=== PATIENT | female | born 1975 | race Caucasian/White ===

== ENCOUNTER 2019-03-18 10:12 | Outpatient (CLI) | payer BC, SELFPAY ==
--- NOTE | 2019-03-18 | XR_ITS ---
WS: [id number] LUMBAR SPINE TECHNIQUE: 5 views of the lumbar spine CLINICAL INFORMATION: CHRONIC BACK PAIN COMPARISON: None. FINDINGS: Moderate lumbar curve convex left. Tiny riblets at T12. 5 nonrib-bearing lumbar type vertebral bodies . Disc space heights and vertebral body heights appear well-preserved. Mild facet arthropathy L4-L5 a nd L5-S1. Pelvic phleboliths. No instability on flexion extension. XR/XR lumbar spine min 4V [id number] IMPRESSION: 1. Moderate lumbar curve convex left. 2. No acute appearing compression fractures. Disc space heights well-preserved . 3. No instability on flexion extension.
--- NOTE | 2019-03-18 | XR_ITS ---
WS: [id number] SACRUM TECHNIQUE: 3 views of the sacrum and coccyx CLINICAL INFORMATION: CHRONIC BACK PAIN COMPARISON: None. FINDINGS: Mild lumbar curve convex left. Pelvic phleboliths. Sacrum is normal in appearance. Pelvic phleboliths . Sacrococcygeal junction appears normal. Visualized coccyx appears normal. XR/XR sacrum coccyx min 2V [id number] IMPRESSION: No visualized sacral or coccyx fractures.
== END 2019-03-18 10:13 | disposition home or self-care (01) ==
LOC: RADOUTREAD 12:45
PROVIDERS: Family Provider Family Medicine; Visit Provider Nurse Practitioner Family
DX: Z76.89 Persons encountering health services in other specified circumstances (principal)

== ENCOUNTER → 2019-08-01 09:20 | Outpatient (BNVA) | payer BC, SELFPAY | PROVIDERS: Family Provider Family Medicine; Visit Provider Obstetrics & Gynecology | DX: N87.0 Mild cervical dysplasia (principal) | CPT/HCPCS: 88175 ==

== ENCOUNTER 2020-01-06 14:45 | Emergency (ER) | payer BC, SELFPAY ==
[2020-01-06 14:58] VITALS: BP 130/92; PULSE 95; RESP 16; TEMP 36.6; O2SAT 95; BMI 34.1
--- NOTE | 2020-01-06 15:00 | ED_ITS ---
HPI - Chest Pain General: Chief Complaint: Chest Pain Stated Complaint: CP Time Seen by Provider: 01/06/20 14:59 History of Present Illness: HPI narrative: 44 yo female complaining of chest pain that started this morning woke up from sleep she has not had this in the past. She is not noticed anything that exacerbates or relieves it. Does not radiate into her neck back or arms she is extremely anxious in the exam room she has had potation's in the past and had seen Dr. Ortiz her primary care doctor she had a Holter monitor and was given Xanax to help. She does admit to drinking quite a bit of coffee and sometimes energy drinks. Her tested positive for Covid today. complaint: chest pain Onset (ago): hour(s) Timing of current episode: episodic Onset: during rest Pain location: substernal Pain radiation: none Severity: moderate Quality: tightness and heaviness Relieving factors: nothing Exacerbating factors: nothing Associated symptoms: Deny abdominal pain, diaphoresis, dyspnea, fever(s), leg edema, nausea, palpitations, sense of impending doom, syncope or vomiting Treatment prior to arrival: none Review of Systems Const: Denies: fever(s) or diaphoresis ENMT: Denies: throat pain, ear or mastoid pain, nasal discharge or nasal congestion Card: Denies: palpitations or syncope Resp: Denies: dyspnea GI: Denies: abdominal pain, nausea or vomiting : Denies: flank pain, difficulty voiding, dysuria, urinary frequency or urinary urgency Skin/Breast: Denies: rash or pruritus PFS ED PFSH: Medical History (Updated 01/06/20 @ 17:59 by Santiago Villareal DO) Anxiety Surgical History (Updated 08/05/19 @ 15:42 by Kenneth Mcmanus MD) History of breast lump/mass excision (04/30/15) Right breast lumpectomy. [facility]. Dr. Fransisco Solorzano. Right breast mass, 1.5 cm. Pathology: Benign fibroadenoma. History of cholecystectomy (~2005) Laparoscopic. [place] [facility] [place] Family History Father Diabetes Brother Diabetes Grandfather Diabetes Maternal Grandmother Cancer Maternal - leukemia Mother Psychiatric illness Depression Social History Smoking and tobacco status: never smoked Alcohol intake: current Alcohol intake frequency: holidays/special occasions only Other details last substance use: Denies drug use Physical Exam Const: COMMON NORMALS: no acute distress GENERAL APPEARANCE: cooperative and comfortable ORIENTATION/CONSCIOUSNESS: Yes awake, Yes oriented to person, Yes oriented to place and Yes oriented to time HENMT: COMMON NORMALS: normocephalic, atraumatic and hearing grossly normal bilaterally HEAD & SCALP: normocephalic and atraumatic Neck/C-Spine: COMMON NORMALS: no JVD Resp: COMMON NORMALS: normal respiratory effort, No retractions, No use of accessory muscles and clear to auscultation bilaterally AUSCULTATION: clear to auscultation bilaterally Cardio: COMMON NORMALS: no JVD, regular rate, regular rhythm and No murmurs present (Cardio) RATE: regular rate RHYTHM: regular rhythm GI: COMMON NORMALS: Soft to palpation and No hepatosplenomegaly present AUSCULTATION: Yes normoactive bowel sounds PALPATION: Yes Soft to palpation, No Tenderness to palpation present (GI), No Guarding due to palpation present (GI) and Yes No hepatosplenomegaly present Extremity: COMMON NORMALS: normal to inspection, capillary refill normal, no clubbing, cyanosis or edema, no calf tenderness and no pedal edema Neuro: SENSORIUM/ORIENTATION: Yes oriented to person, Yes oriented to place and Yes oriented to time Skin: COMMON NORMALS: no rashes or lesions noted GENERAL SKIN EXAM: no rashes or lesions noted Course Vital Signs: Vital signs: Vital Signs Temperature 97.9 F 01/06/20 14:58 Pulse Rate 66 01/06/20 18:25 Respiratory Rate 16 01/06/20 18:25 Blood Pressure 116/67 01/06/20 18:25 Pulse Oximetry 97 01/06/20 18:25 MDM - Chest Pain MDM Narrative: Medical decision making narrative: Her troponins and her PE are negative. She did have close exposure to COVID-19 her recently tested positive. She has a PCR pending. Recommend she maintain quarantine until results are back. Follow-up with Dr. Ortiz if this persists. She has had evaluation for this in the past and according to her she was told is not related to anxiety would recommend that she use some [id number] Pepcid or omeprazole. If persists she can return here or follow-up with Dr. Ortiz. Lab Data: Labs: Lab Results 01/06/20 01/06/20 01/06/20 Range/Units 15:15 15:15 15:15 WBC 3.5 L (4.0-10.0) 10^3/ uL RBC 4.12 (4.1-5.3) 10^6/u L Hgb 12.6 (11.5-15.3) g/dL Hct 38.3 (37.0-47.0) % MCV 93.0 (81-99) fL MCH 30.6 (28.0-34.0) pg MCHC 32.9 (30.0-36.0) g/dL RDW 12.8 (12.1-15.1) % Plt Count 391 (130-400) 10^3/c mm MPV 9.2 (7.4-10.4) fL Neut % (Auto) 52.4 % Lymph % (Auto) 32.2 % Sterling % (Auto) 12.8 % Eos % (Auto) 1.4 % Baso % (Auto) 0.9 % Neut # (Auto) 1.81 (1.8-7.7) 10^3/u L Lymph # (Auto) 1.1 (0.8-4.8) 10^3/u L Sterling # (Auto) 0.4 (0.2-0.9) 10^3/u L Eos # (Auto) 0.1 (0.0-0.8) 10^3/u L Baso # (Auto) 0.0 (0.0-0.1) 10^3/u L Nucleated RBC % (a uto) 0 % Nucleated RBCs # 0.0 /100WBC Sodium 139 (136-145) mmol/L Potassium 4.1 (3.5-5.1) mmol/L Chloride 105 (98-107) mmol/L Carbon Dioxide 22 (22-29) mmol/L Anion Gap 16.1 (5-19) BUN 8 (6-20) mg/dL Creatinine 0.6 (0.5-0.9) mg/dL GFR Calculation 108.1 (90-130) mL/min Glucose 104 (65-115) mg/dL Calculated Osmolal ity 287 (285-295) mOsm/k g Calcium 8.8 (8.5-10.5) mg/dL Total Bilirubin 0.3 (0.15-1.2) mg/dL AST 17 (0-32) U/L ALT 19 (0-33) U/L Alkaline Phosphata se 55 (35-105) IU/L Troponin T Baselin e 6 (0-10) ng/L Troponin T 120 Min melquiades (0-10) ng/L Delta Troponin T (0-10) ABS# Total Protein 7.0 (6.6-8.7) g/dL Albumin 4.4 (3.5-5.2) g/dL Globulin 2.6 (1.3-4.6) g/dL TSH (0.27-4.20) uIU/ mL 01/06/20 01/06/20 Range/Units 15:15 17:05 WBC (4.0-10.0) 10^3/ uL RBC (4.1-5.3) 10^6/u L Hgb (11.5-15.3) g/dL Hct (37.0-47.0) % MCV (81-99) fL MCH (28.0-34.0) pg MCHC (30.0-36.0) g/dL RDW (12.1-15.1) % Plt Count (130-400) 10^3/c mm MPV (7.4-10.4) fL Neut % (Auto) % Lymph % (Auto) % Sterling % (Auto) % Eos % (Auto) % Baso % (Auto) % Neut # (Auto) (1.8-7.7) 10^3/u L Lymph # (Auto) (0.8-4.8) 10^3/u L Sterling # (Auto) (0.2-0.9) 10^3/u L Eos # (Auto) (0.0-0.8) 10^3/u L Baso # (Auto) (0.0-0.1) 10^3/u L Nucleated RBC % (a uto) % Nucleated RBCs # /100WBC Sodium (136-145) mmol/L Potassium (3.5-5.1) mmol/L Chloride (98-107) mmol/L Carbon Dioxide (22-29) mmol/L Anion Gap (5-19) BUN (6-20) mg/dL Creatinine (0.5-0.9) mg/dL GFR Calculation (90-130) mL/min Glucose (65-115) mg/dL Calculated Osmolal ity (285-295) mOsm/k g Calcium (8.5-10.5) mg/dL Total Bilirubin (0.15-1.2) mg/dL AST (0-32) U/L ALT (0-33) U/L Alkaline Phosphata se (35-105) IU/L Troponin T Baselin e (0-10) ng/L Troponin T 120 Min melquiades 6.00 (0-10) ng/L Delta Troponin T 0 (0-10) ABS# Total Protein (6.6-8.7) g/dL Albumin (3.5-5.2) g/dL Globulin (1.3-4.6) g/dL TSH 1.57 (0.27-4.20) uIU/ mL Discharge Plan Discharge Patient Disposition: Home Clinical Impression: Atypical chest pain, Close exposure to COVID-19 virus Condition: Stable Prescriptions: No Action alprazolam [Xanax] 0.25 mg tablet 0.25 mg PO DAILY PRN (Reason: Anxiety) RF: 0 cetirizine 10 mg tablet 10 mg PO DAILY RF: 0 doxycycline hyclate 50 mg capsule 50 mg PO DAILY RF: 0 Contrave 8-90 mg tablet extended release See Rx Instructions .ROUTE .COMPLEX RF: 0 Discharge Orders: Discharge Order (Routine); Ordered 01/06/20 Ordered By: Santiago Villareal Referrals: Giorgi Ortiz MD [Primary Care Provider] - Activity Restrictions/Additional Instructions: Follow up with Dr. Ortiz this week. 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
--- NOTE | 2020-01-06 15:01 | XR_ITS ---
WS: [id number] PORTABLE CHEST HISTORY: chest pain COMPARISON: 04/19/2018 Lungs are clear and well expanded. No pleural effusion or pneumothorax. Cardiac size: Normal. Mediastinum/Aorta: Normal mediastinum. No osseous abnormality seen. XR/XR chest 1V portable [id number] IMPRESSION: Unremarkable portable chest.
[2020-01-06 15:18] LABS: Basophils % 0.9 %; Eosinophils # 0.1 10^3/uL (0.0-0.8); Eosinophils % 1.4 %; Hematocrit 38.3 % (37.0-47.0); Hemoglobin 12.6 g/dL (11.5-15.3); Lymphocytes # 1.1 10^3/uL (0.8-4.8); Lymphocytes % 32.2 %; Mean Corpuscular HGB Conc 32.9 g/dL (30.0-36.0); Mean Corpuscular Hemoglobin 30.6 pg (28.0-34.0); Mean Platelet Volume 9.2 fL (7.4-10.4); Monocytes # 0.4 10^3/uL (0.2-0.9); Monocytes % 12.8 %; Neutrophils # 1.81 10^3/uL (1.8-7.7); Neutrophils % 52.4 %; Nucleated Red Blood Cells % 0 %; Platelet Count 391 10^3/cmm (130-400); Red Blood Count 4.12 10^6/uL (4.1-5.3); Red Cell Distribution Width 12.8 % (12.1-15.1); White Blood Count 3.5 10^3/uL (4.0-10.0)
[2020-01-06 15:42] LABS: Alanine Aminotransferase 19 U/L (0-33); Albumin Level 4.4 g/dL (3.5-5.2); Alkaline Phosphatase 55 IU/L (35-105); Anion Gap 16.1 (5-19); Aspartate Amino Transferase 17 U/L (0-32); Blood Urea Nitrogen 8 mg/dL (6-20); Calcium 8.8 mg/dL (8.5-10.5); Carbon Dioxide 22 mmol/L (22-29); Chloride 105 mmol/L (98-107); Globulin 2.6 g/dL (1.3-4.6); Glomerular Filtration Rate 108.1 mL/min (90-130); Glucose 104 mg/dL (65-115); Osmolality Calculated 287 mOsm/kg (285-295); Potassium 4.1 mmol/L (3.5-5.1); Sodium 139 mmol/L (136-145); Total Bilirubin 0.3 mg/dL (0.15-1.2); Troponin(5th) Baseline 6 ng/L (0-10)
--- NOTE | 2020-01-06 15:50 | CTR_ITS ---
PROCEDURE INFORMATION: Exam: CT Angiography Chest With Contrast Exam date and time: 01/06/2020 5:23 PM Age: 44 years old Clinical indication: Left-sided chest pain; Prior surgery; Surgery type: Gb, lumpectomy; Additional info: Chest pain/suspected covid TECHNIQUE: Imaging protocol: Computed tomographic angiography of the chest with intravenous contrast. 3D rendering (Not supervised by radiologist): MIP and/or 3D reconstructed images were created by the technologist. Radiation optimization: All CT scans at this facility use at least one of these dose optimization techniques: automated exposure control; mA and/or kV adjustment per patient size (includes targeted exams where dose is matched to clinical indication); or iterative reconstruction. Contrast material: OMNI 350; Contrast volume: 72 ml; Contrast route: INTRAVENOUS (IV); COMPARISON: CR XR chest 1V portable [id number] 01/06/2020 3:17 PM RADIATION DOSE METRICS: Total DLP (mGy-cm): 547.99 FINDINGS: Pulmonary arteries: Pulmonary arteries are well opacified. Pulmonary arteries are normal in caliber. No filling defects are demonstrated. No evidence of pulmonary embolism. Aorta: The thoracic aorta appears unremarkable. No aneurysm or dissection demonstrated. Lungs: The lungs appear clear. No infiltrates. Pleural space: No pneumothorax. No pleural effusion. Heart: No cardiomegaly. No pericardial effusion. Lymph nodes: No pathologically enlarged lymph nodes are demonstrated. Bones/joints: No fracture or other acute osseous abnormality. Soft tissues: The soft tissues appear unremarkable. CT/CT angio chest PE protcl [id number] IMPRESSION: 1. No evidence of pulmonary embolism. 2. No evidence of aortic dissection. 3. No CT findings present to indicate pneumonia. (Note: CT may be negative in the early stages of COVID-19.) (Reference: Jones) REFERENCES: Jones Chow, et al., Radiological Society of [place] Expert Consensus Statement on Reporting Chest CT Findings Related to COVID-19. Endorsed by the Society of Thoracic Radiology, the [place] [employer], and RSNA. Published May 14, 2019. Radiation Dose CTDIVOL = (mGy): DLP = 547.99 (mGy-cm)
[2020-01-06 16:12] LABS: Thyroid Stimulating Hormone 1.57 uIU/mL (0.27-4.20)
--- NOTE | 2020-01-06 17:01 | ECG_ITS ---
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 Measurements Intervals [place] Rate: 66 P: 48 WY: 177 QRS: 57 QRSD: 98 T: 32 QT: 384 QTc: 403 Interpretive Statements SINUS RHYTHM Compared to ECG 01/06/2020 15:09:13 No significant changes Electronically Signed On 01-06-2020 21:49:23 PHYSICAL EDUCATION DEPARTMENT CHAIR by Jessica Morejon M.D. [id number]
[2020-01-06 17:17] VITALS: BP 111/59; PULSE 65; RESP 16; O2SAT 98
--- NOTE | 2020-01-06 17:18 | PC.NURSE ---
Patient to restroom then back to room.
[2020-01-06] MEDS: iohexol 350 mg/mL 100 mL Btl IV (17:36)
[2020-01-06 17:42] LABS: Troponin 5 2HR Delta 0 ABS# (0-10)
[2020-01-06 18:25] VITALS: BP 116/67; PULSE 66; RESP 16; O2SAT 97
--- NOTE | 2020-01-06 21:01 | ECG_ITS ---
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 Measurements Intervals [place] Rate: 81 P: 9 RI: 157 QRS: 52 QRSD: 91 T: 3 QT: 336 QTc: 391 Interpretive Statements SINUS RHYTHM Compared to ECG 04/19/2018 03:26:12 No significant changes Electronically Signed On 01-06-2020 21:50:22 SERVICE GREETER by Jessica Morejon M.D. [id number]
== END 2020-01-06 18:25 | disposition home or self-care (01) ==
PROVIDERS: Emergency Provider Family Medicine; PCP Family Medicine
DX: R07.89 Other chest pain (principal); Z20.828 Contact with and (suspected) exposure to other viral communicable diseases
CPT/HCPCS: 12345; 71045; 71275; 80053; 84443; 84484; 85025; 93005; 99283; Q9967

== ENCOUNTER 2020-04-12 08:26 | Outpatient (CLI) | payer BC, SELFPAY ==
--- NOTE | 2020-04-12 08:33 | FL_ITS ---
WS: [id number] DOUBLE CONTRAST UPPER GI EXAMINATION HISTORY: K21.9 - Gastro-esophageal reflux disease without esophagitis COMPARISON: None available. FLUOROSCOPY TIME: 1.7 minutes. Double contrast evaluation performed. Barium mixture traversed normally throughout the esophagus. No filling defects within the stomach. Du odenal bulb was normally distensible and pliable. No gastroesophageal reflux Small reducible hiatal hernia was evident during the examination. FL/FL upper GI w air* [id number] IMPRESSION: 1. No gastroesophageal reflux. 2. Very small reducible hiatal hernia.
== END 2020-04-12 08:27 | disposition home or self-care (01) ==
LOC: RADWPI 08:29
PROVIDERS: PCP Family Medicine; Visit Provider Surgery
DX: K21.9 Gastro-esophageal reflux disease without esophagitis (principal)
CPT/HCPCS: 74246

== ENCOUNTER → 2020-05-21 11:40 | Outpatient (BNVA) | payer BC, SELFPAY | PROVIDERS: PCP Family Medicine; Visit Provider Surgery | DX: Z20.822 Contact with and (suspected) exposure to COVID-19 (principal) | CPT/HCPCS: 87635 ==

== ENCOUNTER 2020-05-26 06:10 | Day surgery (SDC) | payer BC, SELFPAY ==
[2020-05-24 14:14] VITALS: BMI 35.1
--- NOTE | 2020-05-26 06:24 | W.PM.OPSUD ---
Surgery/Procedure H&P Update DATE OF PROCEDURE: May 26, 2020 DATE H&P PERFORMED: 04/29/20 H&P UPDATE INFORMATION: I have reviewed H&P completed within last 30 days, I have examined patient prior to procedure and No changes to prior documentation PREOP DIAGNOSIS: Obesity, hiatal hernia and screening colonoscopy PRIMARY INDICATION FOR PROCEDURE: The same PLANNED PROCEDURE: Operation Date: 05/26/20 07:00 Proposed Procedures p EGD/Colon 36807 K44.9(Not Applicable) - Sathya Loyd MD s Colonoscopy 57908 Z12.11(Not Applicable) - Sathya Loyd MD
[2020-05-26 06:30] VITALS: BP 115/66; PULSE 62; RESP 18; TEMP 36.8; O2SAT 97
[2020-05-26] MEDS: sodium chloride 0.9% 1,000 ML 30 ML IV (06:39)
[2020-05-26 06:55] LABS: OR HCG Qualitative Urine Negative (Negative)
--- NOTE | 2020-05-26 06:56 | P.ANESASSM_ITS ---
Pre-Anesthetic Assessment Pre-Anesthetic Assessment: Height/Weight: Height 1.65 m Weight 95.708 kg Temp Pulse Resp BP Pulse Ox 98.3 F 62 18 115/66 97 05/26/20 06:30 05/26/20 06:30 05/26/20 06:30 05/26/20 06:30 05/26/20 06:30 Preop Diagnosis: Obesity, hiatal hernia and screening colonoscopy Proposed Procedure: Operation Date: 05/26/20 07:00 Proposed Procedures p EGD/Colon 44258 K44.9(Not Applicable) - Sathya Loyd MD s Colonoscopy 85011 Z12.11(Not Applicable) - Sathya Loyd MD Familial anesthetic complications: none Was Beta Fatuma taken within 24 hours: N/A Was Clonidine taken within 24 hours: N/A Last intake: Intake Last Liquid Date 05/25/20 Last Solid Date 05/24/20 Last Intake: 23:30 Social: Social History: No alcohol and No tobacco Exam: Pre-Anes Outpt Exam: alert, oriented x 3, clear to auscultation bilaterally and regular rate & rhythm Airway: Submandibular: WNL Cervical ROM: WNL MP: 1 Dentition: Full Pulmonary: Pulmonary: None reported CV/HEM: CV/HEM: None reported : : None reported Hepatic: Hepatic: None reported GI: GI: Hiatus hernia Metabolic: Metabolic: None reported Musc/skel: Musc/skel: Lower Back Pain and Scoliosis Neuropsych: Neuropsych: Anxiety Anesthetic Plan: ASA status: 2 Anesthesia: MAC Meds/Allergies Current Medications: Current Medications Generic Name Dose Route Start Last Admin Trade Name Freq PRN Reason Stop Dose Admin Sodium Chloride 1,000 mls @ 30 ml s/hr 05/26/20 06:30 05/26/20 06:39 Sodium Chloride 0.9% IV 05/27/20 06:29 30 mls/hr .Q24H RAJNI Administration PFSH Anesthesia PFSH: Medical History Anxiety Surgical History History of breast lump/mass excision (04/30/15) Right breast lumpectomy. [facility]. Dr. Fransisco Solorzano. Right breast mass, 1.5 cm. Pathology: Benign fibroadenoma. History of cholecystectomy (~2005) Laparoscopic. Performed by Dr. Solorzano at [facility] [place]. Family History Father Diabetes Brother Diabetes Grandfather Diabetes Maternal Grandmother Cancer Maternal - leukemia Mother Psychiatric illness Depression Social History Smoking and tobacco status: never smoked Alcohol intake: current Alcohol intake frequency: holidays/special occasions only Other details last substance use: Denies drug use Female Reproductive History: Date of last menstrual period: 05/07/20 Data Anesthesia Other Labs: Laboratory Results - last 48 hr 05/26/20 06:53 Urine HCG, Qual Negative Cardiac Studies: No Data to Display
[2020-05-26 07:35] VITALS: BP 100/68; PULSE 66; RESP 16; TEMP 36.1; O2SAT 97
--- NOTE | 2020-05-26 07:38 | ANE.PACU2 ---
Inpatient post-anesthesia follow up: Airway intact: Yes Vital signs: Temperature 97 F Pulse Rate 66 Respiratory Rate 16 Blood Pressure 100/68 Pulse Oximetry 97 Oxygen Delivery Me thod Room Air Oxygen Flow Rate Fraction of Inspir ed Oxygen Hydration adequate: Yes Nausea and vomiting: No Pain level: 1 Mental status: Baseline
[2020-05-26 08:11] VITALS: BP 118/57; PULSE 75; RESP 18; O2SAT 96
--- NOTE | 2020-05-26 15:46 | ANE.PACU2 ---
Inpatient post-anesthesia follow up: Airway intact: Yes Vital signs: Temperature 97 F Pulse Rate 75 Respiratory Rate 18 Blood Pressure 118/57 Pulse Oximetry 96 Oxygen Delivery Me thod Room Air Oxygen Flow Rate Fraction of Inspir ed Oxygen Hydration adequate: Yes Nausea and vomiting: No Pain level: 2 Mental status: Baseline
== END 2020-05-26 08:20 | disposition home or self-care (01) ==
PROVIDERS: Anesthesiology; PCP Family Medicine; Visit Provider Surgery
PROC: 0DJD8ZZ Inspection of Lower Intestinal Tract, Via Natural or Artificial Opening Endoscopic (ICD-10-PCS; CPT 45378; 2020-05-26 07:00)
PROC: 0DJ08ZZ Inspection of Upper Intestinal Tract, Via Natural or Artificial Opening Endoscopic (ICD-10-PCS; CPT 43235; 2020-05-26 07:00)
DX: Z12.11 Encounter for screening for malignant neoplasm of colon (principal); K44.9 Diaphragmatic hernia without obstruction or gangrene; K57.30 Diverticulosis of large intestine without perforation or abscess without bleeding; K29.70 Gastritis, unspecified, without bleeding; K31.7 Polyp of stomach and duodenum; E66.9 Obesity, unspecified; Z68.35 Body mass index [BMI] 35.0-35.9, adult
CPT/HCPCS: 43239; 45378; 81025; 84703; 88305; 96360; 96361; J2704; J7030

== ENCOUNTER → 2020-08-16 10:34 | Outpatient (BNVA) | payer BC, SELFPAY | PROVIDERS: PCP Family Medicine; Visit Provider Obstetrics & Gynecology | DX: N92.6 Irregular menstruation, unspecified (principal); N87.0 Mild cervical dysplasia; N93.9 Abnormal uterine and vaginal bleeding, unspecified | CPT/HCPCS: 84146; 84443; 85025 ==

== ENCOUNTER → 2020-08-19 10:01 | Outpatient (BNVA) | payer BC, SELFPAY | PROVIDERS: PCP Family Medicine; Visit Provider Obstetrics & Gynecology | DX: N93.9 Abnormal uterine and vaginal bleeding, unspecified (principal) | CPT/HCPCS: 76830 ==

== ENCOUNTER 2020-08-25 11:00 | Outpatient (CLI) | payer BC, SELFPAY | END 2020-08-25 11:01 | disposition home or self-care (01) | LOC: SLEEP 08-26 10:15 | PROVIDERS: PCP Family Medicine; Visit Provider Surgery | DX: E66.01 Morbid (severe) obesity due to excess calories (principal) | CPT/HCPCS: 81025; 88175; 94762 ==

== ENCOUNTER 2020-09-23 14:07 | Outpatient (CLI) | payer BC, SELFPAY ==
--- NOTE | 2020-09-23 14:30 | MM_ITS ---
WS: [id number] BILATERAL SCREENING DIGITAL MAMMOGRAM WITH CAD HISTORY: Z12.39 - Encounter for other screening for malignant neoplasm... COMPARISON: 08/14/2018 and 03/01/2015 Bilateral CC and MLO views submitted. Computer aided detection analyzed. Breast composition: There are scattered areas of fibroglandular density. No suspicious masses, microc alcifications or architectural distortion. MM/[place] [id number] IMPRESSION: BI-RADS: 1-Negative FOLLOW UP: 1 Year Follow-up
== END 2020-09-23 14:08 | disposition home or self-care (01) ==
LOC: RADSHAW 14:11
PROVIDERS: PCP Family Medicine; Visit Provider Obstetrics & Gynecology
DX: Z12.31 Encounter for screening mammogram for malignant neoplasm of breast (principal)
CPT/HCPCS: 77067

== ENCOUNTER → 2020-09-27 08:47 | Outpatient (BNVA) | payer BC, SELFPAY | PROVIDERS: PCP Family Medicine; Visit Provider Obstetrics & Gynecology | DX: Z20.822 Contact with and (suspected) exposure to COVID-19 (principal); N84.0 Polyp of corpus uteri; N93.9 Abnormal uterine and vaginal bleeding, unspecified | CPT/HCPCS: 87635 ==

== ENCOUNTER 2020-09-30 06:51 | Day surgery (SDC) | payer BC, SELFPAY ==
[2020-09-27 09:15] VITALS: BMI 34.9
--- NOTE | 2020-09-27 10:39 | P.ANESASSM_ITS ---
Pre-Anesthetic Assessment Pre-Anesthetic Assessment: Height/Weight: Height 1.65 m Weight 95.254 kg Preop Diagnosis: Obesity, hiatal hernia and screening colonoscopy Proposed Procedure: Operation Date: 09/30/20 08:20 Proposed Procedures p Hysteroscopy w/ Myosure 89558 41317 n84.0(Not Applicable) - Ryan galeana MD s Dilation And Curettage (D&C)(Not Applicable) - Ryan Brooks MD Was Beta Fatuma taken within 24 hours: N/A Was Clonidine taken within 24 hours: N/A Social: Social History: No alcohol and No tobacco Exam: Pre-Anes Outpt Exam: alert, oriented x 3, clear to auscultation bilaterally and regular rate & rhythm Airway: Submandibular: WNL Cervical ROM: WNL MP: 2 Dentition: Full History/ROS: No significant history except as noted Anesthetic Plan: ASA status: 1 Anesthesia: General Risk of > 500 ml blood loss (7ml/kg in children): No PFSH Anesthesia PFSH: Medical History No pertinent past medical history Denies diabetes, asthma, hypertension, seizures, DVT/PE PCP: Dr. Ortiz Surgical History History of breast lump/mass excision (04/30/15) Right breast lumpectomy. [facility]. Dr. Fransisco Solorzano. Right breast mass, 1.5 cm. Pathology: Benign fibroadenoma. History of cholecystectomy (~2005) Laparoscopic. Performed by Dr. Solorzano at [facility] [place]. Family History Father Diabetes Brother Diabetes Grandfather Diabetes Maternal Grandmother Cancer Maternal - leukemia Mother Psychiatric illness Depression Family/Other Heart disease maternal aunt Denies family history of Colon cancer Ovarian cancer Hyperlipidemia Breast cancer Hypertension Uterine cancer Thyroid condition Stroke Social History Alcohol intake: current Alcohol intake frequency: holidays/special occasions only Other details last substance use: Denies drug use Female Reproductive History: Date of last menstrual period: 09/13/20 Data Anesthesia Cardiac Studies: No Data to Display
[2020-09-30] VITALS (7 sets, daily range): BP systolic 89–120; BP diastolic 54–75; PULSE 53–91; RESP 16–18; TEMP 36.1–36.8; O2SAT 95–98
--- NOTE | 2020-09-30 07:12 | P.ANESUD_ITS ---
Pre-Anesthetic Update Pre-Anesthetic Assessment: Date of Surgery/Procedure: 09/30/20 Preop Meryl gnosis: Endometrial polyp Proposed Procedure: Operation Date: 09/30/20 08:20 Proposed Procedures p Hysteroscopy w/ Myosure 58326 71368 n84.0(Not Applicable) - Ryan Santiago MD s Dilation And Curettage (D&C)(Not Applicable) - Ryan Brooks MD Any changes to Pre-Anesthetic Assessment?: No Last Intake: Intake Last Liquid Date 09/29/20 Last Liquid Time 21:00 Last Solid Date 09/29/20 Last Solid Time 21:00 Vitals: Temperature 98.2 F 09/30/20 07:10 Temperature Source Temporal Artery S can 09/30/20 07:10 Pulse Rate 77 09/30/20 07:10 Pulse Rhythm 09/30/20 07:00 Respiratory Rate 18 09/30/20 07:10 Blood Pressure 120/75 09/30/20 07:10 Blood Pressure Sandra n 90 09/30/20 07:10 Pulse Oximetry 96 09/30/20 07:10 Oxygen Delivery Me thod 09/30/20 07:00 Exam: Pre-Anes Outpt Exam: alert, oriented x 3, clear to auscultation bilaterally and regular rate & rhythm Cardiac Studies: No Data to Display
[2020-09-30] MEDS: sodium chloride 0.9% 1,000 ML 30 ML IV (07:15)
[2020-09-30 07:25] LABS: OR HCG Qualitative Urine Negative (Negative)
--- NOTE | 2020-09-30 08:16 | W.PM.OPSUD ---
Surgery/Procedure H&P Update DATE OF PROCEDURE: September 30, 2020 DATE H&P PERFORMED: 09/27/20 H&P UPDATE INFORMATION: I have reviewed H&P completed within last 30 days, I have examined patient prior to procedure, No changes to prior documentation and H&P is in [facility] [place] EMR on date indicated PREOP DIAGNOSIS: Endometrial polyp PLANNED PROCEDURE: Operation Date: 09/30/20 08:20 Proposed Procedures p Hysteroscopy w/ Myosure 81880 04437 n84.0(Not Applicable) - Ryan Brooks MD s Dilation And Curettage (D&C)(Not Applicable) - Ryan Brooks MD
--- NOTE | 2020-09-30 09:04 | P.OP_ITS ---
Operative Report Date of procedure: September 30, 2020 OPERATIVE REPORT Date of surgery:09/30/2020 Date of dictation: 09/30/2020 Preoperative diagnosis: Endometrial polyp, abnormal uterine bleeding Postoperative diagnosis/findings: Examination under anesthesia, 8-week size midposition retroverted uterus, small cervix almost flush with vault, very minimal uterine [id number]-5-5, grade 1 cystocele, grade 1 rectocele. On hysteroscopy 1 to 1/2 cm endometrial polyp arising from the right lateral uterine wall, rest of endometrium appeared normal, bilateral ostia visualized. Normal endocervical cavity. Procedure done: Hysteroscopy, dilation and curettage, polypectomy with MyoSure. Specimens removed/disposition of specimens: Endometrial polyp with endometrial curettings Surgeon: Dr. Ryan Guidry assistant professor of business: Nannette Anesthesia: IV sedation Estimated blood loss: 10 ml Intravenous fluids: 500 mL of LR Urine output: 50 mL of clear urine via red rubber catheter prior to start of procedure Medications: As per anesthesia records Complications: None, patient was taken to the recovery room in a stable condition. PROCEDURE: After consent was obtained patient was taken to the operating room where she is placed under IV sedation for anesthesia without any difficulty. She was placed supine on the table in lithotomy position. Care was taken to ensure that her legs were well positioned to avoid pressure points. She was then prepped and draped in the usual sterile fashion. Exam under anesthesia was done at this time which showed findings noted above. The weighted speculum and lateral vaginal wall retractors were placed in the vagina and the cervix was visualized. The cervix was short and almost flush with the vaginal vault. The cervix was dilated to a 15 Patton dilator. This allowed placement of a MYOSURE hysteroscope into the uterine cavity without any difficulty. Once the hysteroscope was placed in the uterine cavity, the endocervical canal was visualized and appeared normal .the uterine cavity was visualized and findings noted above including the 1 cm polyp. Using the Myosure light polypectomy was performed without difficulty. The Cardoso sure was removed and a sharp curette was introduced and endometrial curettage was performed. The endometrial curettings were sent to pathology along with endometrial polyp tissue. No active bleeding was noted from the cervix Tenaculum was removed and good hemostasis was noted. Good hemostasis was achieved. All instruments were removed from the vagina. Patient was cleaned well and anesthesia was reversed without any difficulty. She was taken to the recovery in a stable condition. FOLLOW UP: Follow-up in 2 weeks and 6 weeks with surgeon MEDICATION ON DISCHARGE: Colace 100 mg by mouth every 12 hours when necessary constipation, 30 tablets, no refills Ibuprofen 800 mg by mouth every 8 hours when necessary pain, 30 tablets, no refills. Continue other home medication. DISPOSITION: Home in a stable condition This documentation was created by [employer] meters superintendent software (known for inherent meters superintendent error). Every effort was made to assure accuracy of meters superintendent. Any obvious errors or omissions should be clarified with the author of the document. Pre-op Diagnosis: Endometrial polyp
--- NOTE | 2020-09-30 09:12 | SUR.PHASEI ---
PT AWAKE ALERT ON RA, VSS. PT TALKATIVE , DENIES PAIN AND NAUSEA.
--- NOTE | 2020-09-30 14:36 | ANE.PACU2 ---
Inpatient post-anesthesia follow up: Airway intact: Yes Vital signs: Temperature 97 F Pulse Rate 91 Respiratory Rate 18 Blood Pressure 108/73 Pulse Oximetry 98 Oxygen Delivery Me thod Room Air Oxygen Flow Rate Fraction of Inspir ed Oxygen Hydration adequate: Yes Nausea and vomiting: No Pain level: 2 Mental status: Baseline
== END 2020-09-30 10:47 | disposition home or self-care (01) ==
PROVIDERS: Anesthesiology; PCP Family Medicine; Visit Provider Obstetrics & Gynecology
PROC: 0UDB8ZZ Extraction of Endometrium, Via Natural or Artificial Opening Endoscopic (ICD-10-PCS; CPT 58558; principal; 2020-09-30 08:10)
PROC: (CPT 58120; 2020-09-30 08:10)
DX: N93.9 Abnormal uterine and vaginal bleeding, unspecified (principal); N84.0 Polyp of corpus uteri
CPT/HCPCS: 58558; 36415; 81025; 84703; 86850; 86900; 88305; J1100; J1170; J2250; J2405; J2704; J3010; J7030

== ENCOUNTER → 2020-11-17 12:50 | Outpatient (BNVA) | payer BC, SELFPAY | PROVIDERS: PCP Family Medicine; Visit Provider Obstetrics & Gynecology | DX: N93.9 Abnormal uterine and vaginal bleeding, unspecified (principal) | CPT/HCPCS: 81025 ==

== ENCOUNTER → 2020-12-13 15:24 | Outpatient (BNVA) | payer BC, SELFPAY | PROVIDERS: PCP Family Medicine; Referring Provider Family Medicine; Visit Provider Podiatrist Foot & Ankle Surgery | DX: M79.672 Pain in left foot (principal); M79.671 Pain in right foot; M21.612 Bunion of left foot; M21.611 Bunion of right foot | CPT/HCPCS: 73630 ==

== ENCOUNTER → 2021-02-14 09:21 | Outpatient (BNVA) | payer BC, SELFPAY | PROVIDERS: PCP Family Medicine; Visit Provider Podiatrist Foot & Ankle Surgery | DX: Z01.812 Encounter for preprocedural laboratory examination (principal); Z20.822 Contact with and (suspected) exposure to COVID-19 | CPT/HCPCS: 87635 ==

== ENCOUNTER 2021-02-17 10:44 | Day surgery (SDC) | payer BC, SELFPAY ==
[2021-02-16 15:38] VITALS: BMI 34.7
[2021-02-17] VITALS (7 sets, daily range): BP systolic 114–132; BP diastolic 76–91; PULSE 58–74; RESP 12–20; TEMP 36.4–36.8; O2SAT 96–100
--- NOTE | 2021-02-17 | SCC_ITS ---
Procedure Done: Bunionectomy with double osteotomy and tailor's bunionectomy right foot 5 seconds of fluoroscopic guidance, for a cumulative dose of 0.8 mGy, was provided to Dr. Abdul by the radiology department. C-arm images of the RIGHT foot were saved for the patient's permanent record. [id number]
[2021-02-17 11:13] LABS: OR HCG Qualitative Urine Negative (Negative)
[2021-02-17] MEDS: sodium chloride 0.9% 1,000 ML 30 ML IV (11:20)
--- NOTE | 2021-02-17 11:47 | W.PM.OPSUD ---
Surgery/Procedure H&P Update DATE OF PROCEDURE: February 17, 2021 DATE H&P PERFORMED: 01/26/21 H&P UPDATE INFORMATION: I have reviewed H&P completed within last 30 days, I have examined patient prior to procedure, No changes to prior documentation and H&P is in [facility] EMR on date indicated PREOP DIAGNOSIS: Bunion and tailor's bunion right foot PLANNED PROCEDURE: Operation Date: 02/17/21 12:00 Proposed Procedures p Bunionectomy [place] [id number] M21.611 M21.612 M21.621(Right) - CORNELIUS Garcia Connor Osteotomy(Right) - CORNELIUS Garcia Bunionectomy Tailors(Right) - Miguel Abdul DPM
--- NOTE | 2021-02-17 12:10 | P.ANESASSM_ITS ---
Pre-Anesthetic Assessment Pre-Anesthetic Assessment: Height/Weight: Height 1.65 m Weight 94.801 kg Temp Pulse Resp BP Pulse Ox 98.2 F 73 16 132/91 97 02/17/21 11:07 02/17/21 11:07 02/17/21 11:07 02/17/21 11:07 02/17/21 11:07 Preop Diagnosis: Bunion and tailor's bunion right foot Proposed Procedure: Operation Date: 02/17/21 12:00 Proposed Procedures p Bunionectomy [place] [id number] M21.611 M21.612 M21.621(Right) - Miguel Abdul DPM s Connor Osteotomy(Right) - Miguel Abdul DPM s Bunionectomy Tailors(Right) - Miguel Abdul DPM Was Beta Fatuma taken within 24 hours: N/A Was Clonidine taken within 24 hours: N/A Last intake: Intake Last Liquid Date 02/16/21 Last Liquid Time 22:00 Last Solid Date 02/16/21 Last Solid Time 22:00 Last Intake: 17:00 Social: Social History: No alcohol and No tobacco Exam: Pre-Anes Outpt Exam: alert and oriented x 3 Airway: Submandibular: WNL Cervical ROM: WNL MP: 1 Dentition: Full History/ROS: No significant history except as noted Pulmonary: Comments: had allergic reaction about 2 weeks ago with face and lip swelling. got steroids at urgent care clinic. no problems since. alleric source unknown. CV/HEM: CV/HEM: None reported : : None reported Hepatic: Hepatic: None reported GI: GI: None reported Metabolic: Metabolic: None reported Musc/skel: Musc/skel: None reported Neuropsych: Neuropsych: None reported Anesthetic Plan: ASA status: 1 Anesthesia: Anesthesia Evaluation and General Risk of > 500 ml blood loss (7ml/kg in children): No Meds/Allergies Current Medications: Current Medications Generic Name Dose Route Start Last Admin Trade Name Freq PRN Reason Stop Dose Admin Sodium Chloride 1,000 mls @ 30 ml s/hr 02/17/21 10:45 02/17/21 11:20 Sodium Chloride 0.9% IV 02/18/21 10:44 30 mls/hr .Q24H RAJNI Administration PFSH Anesthesia PFSH: Medical History No pertinent past medical history Denies diabetes, asthma, hypertension, seizures, DVT/PE PCP: Dr. Ortiz Surgical History History of breast lump/mass excision (04/30/15) Right breast lumpectomy. [facility]. Dr. Fransisco Solorzano. Right breas t mass, 1.5 cm. Pathology: Benign fibroadenoma. History of cholecystectomy (~2005) Laparoscopic. Performed by Dr. Solorzano at [facility] [place]. Status post hysteroscopy 09/30/2020--hysteroscopy, dilation and curettage and endometrial polypectomy with MyoSure performed by Dr. Guidry at [facility] [place]. ----> Pathology showed benign proliferative phase endometrium with benign endometrial polyp. No malignancy identified. Family History Father Diabetes Brother Diabetes Grandfather Diabetes Maternal Grandmother Cancer Maternal - leukemia Mother Psychiatric illness Depression Family/Other Heart disease maternal aunt Denies family history of Colon cancer Ovarian cancer Hyperlipidemia Breast cancer Hypertension Uterine cancer Thyroid condition Stroke Social History Other details last substance use: Denies drug use Female Reproductive History: Date of last menstrual period: 09/13/20 Data Anesthesia Other Labs: Laboratory Results - last 48 hr 02/17/21 10:58 Urine HCG, Qual Negative Cardiac Studies: No Data to Display
--- NOTE | 2021-02-17 13:56 | PM.OP ---
Operative Report Date of procedure: February 17, 2021 Pre-op Diagnosis: Bunion and tailor's bunion right foot Post-op diagnosis: same Post-op Findings: None Procedure Done: Bunionectomy with double osteotomy and tailor's bunionectomy right foot Implants: Right medical ISO minimax plate at bunion and right medical ProStep a tailor's bunion, right medical 10 mm staple at Connor osteotomy, 3-0 Vicryl, 4-0 Vicryl, 4-0 nylon Specimens removed/disposition: None Pathology: none sent Surgeon: Miguel Abdul D.P.M. Button Buttonhole Marker: [place] Anesthesia: MAC Estimated blood loss: 5 Tourniquet time: 72 IV fluids: 0 Urine output: 0 Complications: none Condition: stable Disposition: PACU Brief History: Patient has had progressive pain on daily activities and has been a progression of bunion deformity and tailor's bunion deformity unresponsive to conservative measures consisting of shoe modification, activity modification and [id number] anti-inflammatories. Wishing to pursue surgical correction. Risks include but are not limited to pain, bleeding, numbness, infection, hardware failure, delayed healing, nonhealing, nonunion, altered mechanics, need for further surgical intervention. Covid screening negative. Patient n.p.o. since midnight. Informed consent signed. I initialed her right foot. No guarantees written, expressed or implied. Procedure: Under mild sedation the patient was brought to the operating room and placed on the operating table in supine position. A timeout was performed. Anesthesia was then administered by the anesthesia service. Local anesthesia injected by myself total of 30 cc of 0.5% Marcaine plain in a Blackman block and reverse Blackman block fashion to the right foot. Well-padded pneumatic tourniquet applied to the right ankle. Right lower extremity was then scrubbed, prepped and draped utilizing normal aseptic technique. Right foot was then exanguinated with an Esmarch bandage and a tourniquet inflated to 250 mmHg. Attention was directed to the dorsal medial aspect of the right first metatarsophalangeal joint where a linear longitudinal incision was made medial and parallel to the extensor hallucis longus tendon. Fresh blade utilized for deeper dissection and care was taken to retract and preserve neurovascular and tendinous structures. All bleeders were ligated and cauterized as necessary. Linear capsulotomy was performed in the medial eminence was transected from the first metatarsal head with a sagittal saw and passed from the operative field. Chevron style osteotomy with apex oriented distally was performed through and through and the head of the first metatarsal was translated laterally followed by fixation utilizing [employer] intramedullary implant with combination of locking and nonlocking screws with excellent bony apposition and compression noted with remaining medial shelf then being transected with a sagittal saw and rough edges smoothed. Incision was flushed with saline solution, intraoperative fluoroscopy confirmed excellent placement of hardware and improved anatomic alignment of the medial column however hallux continued to remain in a slight valgus position necessitating a [place] osteotomy which was performed maintaining a lateral cortical hinge and fixated with a 10 mm compression staple. Incision was flushed with copious amounts of sterile saline solution. Fluoroscopy confirmed placement of hardware not violating the metatarsophalangeal joint. Capsule was debulked and closed utilizing 3-0 Vicryl, subcutaneous tissue closed with 4-0 Vicryl and skin closed with 4-0 nylon. Attention was then directed to the dorsal lateral aspect of the right fifth metatarsophalangeal joint where a linear longitudinal incision was made lateral and parallel to the extensor tendon at the level of the metatarsophalangeal joint. Care was taken to retract and preserve neurovascular and tendinous structures. All bleeders were ligated and cauterized as necessary. Linear capsulotomy was performed followed by transection of the lateral eminence of the fifth metatarsal head followed by a transverse osteotomy at the metaphyseal flare, intramedullary implant this was a [employer] ProStep was inserted and fixated utilizing standard technique with excellent positioning and compression noted of hardware this was confirmed on fluoroscopy noted to be excellent in all 3 planes. Lengthening of the extensor tendon was then performed of the fifth toe followed by flush of incision with copious amounts of sterile saline solution and closure in a layered fashion utilizing 3-0 Vicryl, 4-0 Vicryl and 4-0 nylon. Final fluoroscopy performed utilizing mini C arm and confirmed placement of hardware in all 3 planes noted to be appropriate and improved alignment of the first and fifth metatarsal phalangeal joints and digits. Incisions were then dressed with Adaptic, sterile 4 x 4, Kerlix and Doe wrap. Prior to dressing application Exparel 10 mL expanded with saline was performed at the incisions in a grid like fashion subcutaneously. Cam boot was applied. Tourniquet was deflated and a prompt hyperemic response was noted to the distal digits of the right foot. Patient tolerated the procedure and anesthesia well and was transferred to the PACU with vital signs stable and vascular status intact. Following a period of postoperative monitoring she will be discharged home. She is to elevate her foot while resting, may be protected weightbearing with a cam boot. Will follow up next week for dressing change was given at home care instructions and my cell phone number for follow-up should she have any questions or concerns.
--- NOTE | 2021-02-17 14:01 | P.PCN_ITS ---
PACU note PACU note: VSS, Good respiratory effort, report to PROFESSOR OF FLORICULTURE Post-Anesthesia Exam: awake
--- NOTE | 2021-02-17 14:01 | PM.PACU ---
PACU note PACU note: VSS, Good respiratory effort, report to SPORTS BOOK WRITER Post-Anesthesia Exam: awake
--- NOTE | 2021-02-17 16:21 | ANE.PACU2 ---
Inpatient post-anesthesia follow up: Airway intact: Yes Vital signs: Temperature 97.8 F Pulse Rate 62 Respiratory Rate 16 Blood Pressure 130/82 Pulse Oximetry 99 Oxygen Delivery Me thod Room Air Oxygen Flow Rate 10 Fraction of Inspir ed Oxygen Hydration adequate: Yes Nausea and vomiting: No Pain level: 2 Mental status: Baseline
== END 2021-02-17 15:05 | disposition home or self-care (01) ==
PROVIDERS: PCP Family Medicine; Visit Provider Podiatrist Foot & Ankle Surgery
PROC: (CPT 28296; principal; 2021-02-17 12:00)
PROC: (CPT 28298; 2021-02-17 12:00)
PROC: 0QBP0ZZ Excision of Left Metatarsal, Open Approach (ICD-10-PCS; CPT 28110; 2021-02-17 12:00)
DX: M21.611 Bunion of right foot (principal); M21.621 Bunionette of right foot
CPT/HCPCS: 28299; 28308; 76000; 81025; 84703; 96365; C1713; C9290; J0690; J1100; J2250; J2405; J2704; J3010; J3490; J7030

== ENCOUNTER → 2021-03-03 10:04 | Outpatient (BNVA) | payer BC, SELFPAY | PROVIDERS: PCP Family Medicine; Visit Provider Podiatrist Foot & Ankle Surgery | DX: Z98.890 Other specified postprocedural states (principal); Z48.89 Encounter for other specified surgical aftercare | CPT/HCPCS: 73630 ==

== ENCOUNTER 2021-03-03 15:41 | Outpatient (CLI) | payer BC, SELFPAY | END 2021-03-03 15:42 | disposition home or self-care (01) | LOC: SPT 15:43 | PROVIDERS: PCP Family Medicine; Visit Provider Podiatrist Foot & Ankle Surgery | DX: Z47.89 Encounter for other orthopedic aftercare (principal) | CPT/HCPCS: 97760; L3100 ==

== ENCOUNTER → 2021-03-17 13:05 | Outpatient (BNVA) | payer BC, SELFPAY | PROVIDERS: PCP Family Medicine; Visit Provider Podiatrist Foot & Ankle Surgery | DX: Z98.890 Other specified postprocedural states (principal); Z48.89 Encounter for other specified surgical aftercare | CPT/HCPCS: 73630 ==

== ENCOUNTER → 2021-03-31 13:14 | Outpatient (BNVA) | payer BC, SELFPAY | PROVIDERS: PCP Family Medicine; Visit Provider Podiatrist Foot & Ankle Surgery | DX: Z98.890 Other specified postprocedural states (principal) | CPT/HCPCS: 73630 ==

== ENCOUNTER → 2021-05-12 13:46 | Outpatient (BNVA) | payer BC, SELFPAY | PROVIDERS: PCP Family Medicine; Visit Provider Podiatrist Foot & Ankle Surgery | DX: Z98.890 Other specified postprocedural states (principal); Z48.89 Encounter for other specified surgical aftercare | CPT/HCPCS: 73630 ==

== ENCOUNTER → 2021-06-29 09:42 | Outpatient (BNVA) | payer BC, SELFPAY | PROVIDERS: PCP Family Medicine; Visit Provider Obstetrics & Gynecology | DX: N89.8 Other specified noninflammatory disorders of vagina (principal) | CPT/HCPCS: 87070; 87205; 87491; 87591; 87661 ==

== ENCOUNTER → 2021-11-10 12:40 | Outpatient (BNVA) | payer BC, SELFPAY | PROVIDERS: PCP Family Medicine; Visit Provider Internal Medicine | DX: R76.8 Other specified abnormal immunological findings in serum (principal); M25.50 Pain in unspecified joint; R22.0 Localized swelling, mass and lump, head | CPT/HCPCS: 80053; 81001; 82550; 82784; 83516; 85025; 85651; 86036; 86140; 86160; 86161; 86162; 86200; 86235; 86255; 86376; 86431; 86480; 86704; 86803; 87340 ==

== ENCOUNTER → 2022-01-06 08:11 | Outpatient (BNVA) | payer BC, SELFPAY | PROVIDERS: PCP Family Medicine; Visit Provider Obstetrics & Gynecology | DX: N89.8 Other specified noninflammatory disorders of vagina (principal) | CPT/HCPCS: 87491; 87591; 87661 ==

== ENCOUNTER 2022-01-19 11:31 | Outpatient (CLI) | payer BC, SELFPAY ==
--- NOTE | 2022-01-19 11:42 | MM_ITS ---
WS: [id number] BILATERAL SCREENING DIGITAL TOMOSYNTHESIS MAMMOGRAM WITH CAD HISTORY: Z12.39 - Encounter for other screening for malignant neoplasm... COMPARISON: 09/23/2020, 08/14/2018 Bilateral CC and MLO views with tomosynthesis and synthetic mammography submitted. Computer aided det ection analyzed. Breast composition: The breasts are heterogeneously dense, which may obscure small masses. No suspici ous masses, microcalcifications or architectural distortion. MM/[place] [id number] IMPRESSION: BI-RADS: 1-Negative FOLLOW UP: 1 Year Follow-up
--- NOTE | 2022-01-19 13:11 | XR_ITS ---
WS: [id number] XR hand RT 2V [id number] REASON FOR EXAM: R76.8 - Other specified abnormal immunological findings i... FINDINGS: Mild narrowing with subchondral sclerosis in the PIP and DIP joints of the fifth finger. Mild joint space narrowing with subchondral sclerosis and small marginal osteophytosis in the joints of the thumb. No fracture, periosteal reaction, focal bone lesion, or erosion is identified. No soft tissue abnormality is identified. XR/XR hand RT 2V [id number] IMPRESSION: Mild osteoarthritis as above.
--- NOTE | 2022-01-19 13:11 | XR_ITS ---
WS: [id number] XR sacroiliac jts m 3V [id number] REASON FOR EXAM: L40.9 - Psoriasis, unspecified FINDINGS: There is no fusion, erosions, or bridging of the sacroiliac joints. There is prominent marginal sclerosis with mild narrowing and osteophytosis of the distal most sacroi liac joints. These findings are more compatible with degenerative change and a spondylolysis arthropathy. XR/XR sacroiliac jts m 3V [id number] IMPRESSION: No definite findings for sacroiliitis.
--- NOTE | 2022-01-19 13:11 | XR_ITS ---
WS: [email or web address] XR hand LT 2V [id number] REASON FOR EXAM: R76.8 - Other specified abnormal immunological findings i... FINDINGS: Mild narrowing of the joint space with mild subchondral sclerosis in the PIP and DIP joints of the fi fth finger. There is mild narrowing with subchondral sclerosis and minor osteophytosis in the joints of the thumb . Thumb. No fracture or focal bone lesion. No periosteal reaction or erosion. No soft tissue abnormality. XR/XR hand LT 2V [id number] IMPRESSION: Minimal changes of osteoarthritis in the left hand.
== END 2022-01-19 11:32 | disposition home or self-care (01) ==
LOC: RAD 11:37
PROVIDERS: PCP Family Medicine; Visit Provider Obstetrics & Gynecology
DX: Z12.31 Encounter for screening mammogram for malignant neoplasm of breast (principal); L40.9 Psoriasis, unspecified; R76.8 Other specified abnormal immunological findings in serum; M19.042 Primary osteoarthritis, left hand; M19.041 Primary osteoarthritis, right hand
CPT/HCPCS: 72202; 73120; 77063; 77067

== ENCOUNTER 2022-01-19 12:13 | Outpatient (CLI) | payer BC, SELFPAY ==
[2022-01-19 12:51] LABS: Erythrocyte Sedimentation Rate 21 mm/hr (0-15)
[2022-01-19 13:24] LABS: Creatine Phosphokinase 109 U/L (26-192); Free T4 Free Thyroxine 1.24 ng/dL (0.82-1.77); Thyroid Stimulating Hormone 1.11 uIU/mL (0.27-4.20)
[2022-01-24 21:44] LABS: Myositis EJ AB <11 SI (<11); Myositis JO-1 AB <11 SI (<11); Myositis MDA-5 AB <11 SI (<11); Myositis MI-2 Alpha AB <11 SI (<11); Myositis MI-2 Beta AB <11 SI (<11); Myositis NXP-2AB <11 SI (<11); Myositis OJ AB <11 SI (<11); Myositis PL-12 AB <11 SI (<11); Myositis PL-7 AB <11 SI (<11); Myositis SRP AB <11 SI (<11); Myositis TIF-1y AB <11 SI (<11)
== END 2022-01-19 12:14 | disposition home or self-care (01) ==
LOC: LAB 12:17
PROVIDERS: PCP Family Medicine; Visit Provider Internal Medicine
DX: M25.50 Pain in unspecified joint (principal); R22.0 Localized swelling, mass and lump, head; R74.8 Abnormal levels of other serum enzymes; R76.8 Other specified abnormal immunological findings in serum
CPT/HCPCS: 36415; 82550; 84182; 84439; 84443; 85651; 86140; 86235

== ENCOUNTER → 2024-02-11 16:06 | Outpatient (BNVA) | payer BC, SELFPAY | PROVIDERS: PCP Family Medicine; Visit Provider Obstetrics & Gynecology | DX: Z01.419 Encounter for gynecological examination (general) (routine) without abnormal findings (principal) | CPT/HCPCS: 87624 ==